=== PATIENT | male | born 1975 | race African-American/Black ===

== ENCOUNTER 2020-07-22 13:32 | Emergency (ER) | payer OTHER ==
[2020-07-22 14:11] LABS: #Basophils 0.1 thou/uL (0.0-0.2); #Lymphocytes 1.3 thou/uL (1.20-3.40); #Monocytes 0.4 thou/uL (0.11-0.59); #Neutrophils 2.6 thou/uL (1.40-6.50); %Basophils 1.5 % (0.0-1.0); %Eosinophils 1.1 % (0.0-10.0); %Lymphocytes 29.7 % (21.0-51.0); %Monocytes 8.2 % (0.0-10.0); %Neutrophils 59.6 % (42.0-75.0); Hemoglobin 12.1 g/dL (14.0-18.0); Mean Corpuscular HGB CONC 30.6 g/dL (32.0-36.0); Mean Corpuscular Hemoglobin 26.3 pg (27.0-31.0); Mean Corpuscular Volume 85.9 fL (78.0-98.0); Mean Platelet Volume 9.3 fL (7.4-10.4); Platelet Count 286 thou/uL (130-400); RBC Distribution Width 16.9 % (11.5-14.5); White Blood Cell (WBC) Count 4.3 thou/uL (4.8-10.8)
[2020-07-22 14:28] LABS: ALT (SGPT) 21 U/L (8-55); AST (SGOT) 15 U/L (5-34); Albumin 3.7 g/dL (3.5-5.0); Alkaline Phosphatase 141 U/L (40-110); Anion Gap 14 mmol/L (10-20); BUN (Urea Nitrogen) 11 mg/dL (8.9-20.6); Bilirubin, Total 0.3 mg/dL (0.2-1.2); Calc. Creatinine Clearance 0 mL/min (70-130); Calcium 9.3 mg/dL (7.8-10.44); Carbon Dioxide 23 mmol/L (22-29); Chloride 103 mmol/L (98-107); Estimated GFR-MDRD Greater than 90; Glucose 105 mg/dL (70-105); Potassium 4.1 mmol/L (3.5-5.1); Protein, Total 7.7 g/dL (6.0-8.3); Sodium 136 mmol/L (136-145)
--- NOTE | 2020-07-22 14:47 | CT ---
CT OF THE BRAIN WITHOUT CONTRAST: 07/22/20 INDICATION: History of shunt revision last month at [facility] with hydrocephalus and lifelong seizures. Now with synco pal episodes and fall while sitting and watching television. COMPARISON: None. FINDINGS: There is a right parietal ventricular peritoneal shunt catheter projecting into the right posterior h orn of the lateral ventricle, near the midline. No ember hydrocephalus is evident. No midline shift i s evident. No acute infarct, hemorrhage, or hydrocephalus is present. Mastoid air cells and paranasal sinuses are clear. The visualized aspects of the [employer] shunt catheter appear intact. IMPRESSION: No acute intracranial abnormality. POS: BH
--- NOTE | 2020-07-22 14:50 | CT ---
CT CERVICAL SPINE WITHOUT CONTRAST: 07/22/20 INDICATION: History of fall and seizures with concern for neck injury. COMPARISON: None. FINDINGS: There is a ventriculoperitoneal shunt catheter running within the right neck. A remote disrupted cath eter also runs along the new catheter at the mid neck through the level of the upper torso. No acute fracture or subluxation is evident. Osseous central canal is preserved. There is a midline fusion def ect at C1 which is a normal variant. The visualized posterior fossa is unremarkable appearing. IMPRESSION: No acute osseous abnormality. POS: BH
[2020-07-22] MEDS ORDERED: Acetaminophen 500 MG TAB ONE ×2 (15:12→15:13)
[2020-07-22 16:00] LABS: Bilirubin Negative (Negative); Blood, Urine Negative (Negative); Clarity Clear (Clear); Glucose, Urine (Dipstick) Negative (Negative); Ketone, Urine 15 mg/dL (Negative); Leukocyte Negative (Negative); Nitrite Negative (Negative); Protein, Urine (Dipstick) Negative (Neg-Trace); Specific Gravity, Urine 1.015 (1.005-1.030); Urobilinogen 0.2 mg/dL (Less than 2); pH, Urine 7.5 (5.0-9.0)
[2020-07-22] MEDS ORDERED: Morphine 4 MG/ML VIAL ONE (16:44)
== END 2020-07-22 17:04 | disposition short-term general hospital (02) ==
LOC: NAV ERS 13:32
DX: R55 Syncope and collapse (principal); F41.9 Anxiety disorder, unspecified; Z79.899 Other long term (current) drug therapy
CPT/HCPCS: 70450; 72125; 80053; 81003; 82550; 84484; 85025; 93005; 96374; J2270